=== PATIENT | male | born 1985 | race Caucasian/White ===

== ENCOUNTER 2016-09-23 09:01 | Emergency (ER) | payer SELFPAY ==
[~2016-09-23] VITALS: Ht 165.1 cm; Wt 65.9 kg
[2016-09-23] MEDS ORDERED: AMOXICILLIN 50500 MG PO (09:35)
[2016-09-23] MEDS ORDERED: TRAMADOL 50 MG TAB PO (09:35)
[2016-09-23 09:57] VITALS: BP 129/80
== END 2016-09-23 09:53 | disposition home or self-care (01) ==
LOC: ED 09:01
DX: K08.89 Other specified disorders of teeth and supporting structures (principal)
CPT/HCPCS: J1885

== ENCOUNTER 2021-12-27 09:33 | Emergency (ER) | payer SELFPAY ==
[~2021-12-27] VITALS: Ht 167.6 cm; Wt 65.9 kg
[~2021-12-27 09:33] MED LIST: AMOXICILLIN 50500 MG PO; TRAMADOL 50 MG TAB PO
[2021-12-27 10:10] LABS: BASO # 0.03 K/mm3 (0.02-0.10); EOS # 0.03 K/mm3 (0.04-0.40); EOS % 0.4 % (0.0-4.0); HEMATOCRIT 46.8 % (42.0-52.0); HEMOGLOBIN 16.2 g/dL (13.5-18.0); LYMPH# 1.85 K/mm3 (1.50-4.00); MEAN CELL VOLUME 94 fl (78-100); MEAN CORPUSCULAR HEMOGLOBIN 33 pg (27-31); MEAN CORPUSCULAR HGB CONC 35 g/dL (33-37); MONO # 0.86 K/mm3 (0.20-0.80); NEU # 5.61 K/mm3 (1.40-6.50); PLATELET COUNT 284 K/mm3 (130-400); RED BLOOD COUNT 4.99 M/mm3 (4.20-5.60); RED CELL DISTRIBUTION WIDTH 12.3 % (11.5-14.5); WHITE BLOOD COUNT 8.4 K/mm3 (4.8-10.8)
[2021-12-27 10:19] LABS: ALBUMIN 5.1 g/dL (3.5-5.0); POTASSIUM 3.2 mmol/L (3.5-5.1); SODIUM 136 mmol/L (136-145)
[2021-12-27 10:20] LABS: CALCIUM 11.3 mg/dL (8.3-10.5)
[2021-12-27 10:21] LABS: GLUCOSE 110 mg/dL (75-110)
[2021-12-27 10:22] LABS: TOTAL PROTEIN 8.7 g/dL (6.4-8.3)
[2021-12-27 10:23] LABS: CARBON DIOXIDE 23 mmol/L (22-29); TOTAL BILIRUBIN 1.3 mg/dL (0.2-1.2)
[2021-12-27 10:25] LABS: ALCOHOL IN-HOUSE < 10 mg/dL (<10)
[2021-12-27 10:27] LABS: AST-SGOT 22 U/L (5-34)
[2021-12-27 10:28] LABS: ALT/SGPT 15 U/L (0-55)
[2021-12-27 10:34] LABS: ACETAMINOPHEN < 1 ug/mL
[2021-12-27 10:58] LABS: URINE APPEARANCE CLEAR; URINE COLOR AMBER
[2021-12-27 10:59] LABS: URINE BILIRUBIN NEGATIVE (NEGATIVE); URINE BLOOD NEGATIVE (NEGATIVE); URINE GLUCOSE NEGATIVE (NEGATIVE); URINE KETONE 1+ (NEGATIVE); URINE LEUKOCYTE ESTERASE NEGATIVE (NEGATIVE); URINE MUCUS PRESENT (NOT PRESENT); URINE NITRATE NEGATIVE (NEGATIVE); URINE PROTEIN(semi-quant) TRACE (NEGATIVE); URINE UROBILINOGEN 4 mg/dL (NORMAL); URINE WBC 0-1 /hpf (0-3)
[2021-12-27 15:00] VITALS: BP 128/79
== END 2021-12-27 14:40 | disposition home or self-care (01) ==
LOC: ED 09:33
PROVIDERS: Physician Assistant
DX: F32.A Depression, unspecified (principal); F41.9 Anxiety disorder, unspecified; M54.9 Dorsalgia, unspecified; F17.210 Nicotine dependence, cigarettes, uncomplicated; Z28.310 Unvaccinated for COVID-19
CPT/HCPCS: J1885

== ENCOUNTER 2023-05-31 09:24 | Emergency (ER) | payer OTHER ==
[~2023-05-31] VITALS: Ht 165.1 cm; Wt 68.2 kg
[2023-05-31 11:29] VITALS: BP 126/80
== END 2023-05-31 11:31 | disposition home or self-care (01) ==
LOC: ED 09:24
DX: R09.A9 Foreign body sensation, other site (principal); F17.210 Nicotine dependence, cigarettes, uncomplicated